=== PATIENT | female | born 1990 | race Caucasian/White ===

== ENCOUNTER → 2016-04-22 | Outpatient (CLI) | payer OTHER ==
--- NOTE | 2016-04-22 11:54 | US ---
Complete Pelvic Sonography (Transabdominal and Endovaginal) CLINICAL HISTORY: 26-year-old female with dysmenorrhea, a frequent "throbbing left lower quadrant rimma n," and a history of interstitial cystitis. A Nexplanon implant was placed in Spring 2015. The patien t's LMP was April 13, 2016, and she is 0. Rule out fibroid or ovarian cyst. ICD10 Diagnostic Code: N94.6. TECHNIQUE: Initially, a curvilinear 5 MHz transducer was used to sonographically evaluate the pelvis, using a full urinary bladder as a window. To better assess the uterine architecture and the adnexal structures, endovaginal pelvic sonography was also performed. Color and spectral Doppler were used. COMPARISON STUDY: None. FINDINGS: Transabdominal Pelvic Sonography: The contour of the visualized urinary bladder is normal. The uterus is normal in size, shape, and position, measuring 8.2 x 4.3 x 2.9 cm. The right and left ovaries con tain some tiny follicles. There is no free fluid. Endovaginal Pelvic Sonography: The endometrium is normal in thickness, measuring 2.7 mm in diameter. There is no focal myometrial abnormality. The ovaries contain some small anechoic follicles. The righ t ovary measures 2.9 x 2.0 x 3.9 cm (for a volume 11.4 mL), and the left ovary measures 2.3 x 1.2 x 3 .5 cm (for volume of 5.2 mL). There is no solid adnexal mass, free fluid, or torsion. The right ovari an resistive index is 0.61, as it is on the left side. IMPRESSION: Normal exam.
== END ==
LOC: BMCIMAGING 10:48
PROVIDERS: ATTEND Family Medicine
DX: N94.6 Dysmenorrhea, unspecified (principal)